=== PATIENT | male | born 1965 | race Caucasian/White ===

== ENCOUNTER 2019-10-07 13:14 | Emergency (ER) | payer OTHER ==
[~2019-10-07] VITALS: Ht 180.3 cm; Wt 74.2 kg
[~2019-10-07 13:14] MED LIST: AMLO5TAB10 PO; ATEN25TA42 PO; BENZ2AMP4 IJ; BUPR300T92 PO; DILT120C99 PO; OLAN5TAB9 PO; QUET150T2 PO; ROPI1TAB4 PO; TRAZ-125 PO
[2019-10-07 14:07] LABS: BASO # 0.1 x10^3/uL (0.0-0.2); BASO % 1 % (0-3); EOS # 0.1 x10^3/uL (0.0-0.7); EOS % 1 % (0-3); HEMATOCRIT 38.4 % (39.0-53.0); HEMOGLOBIN 13.1 g/dL (13.0-17.5); LYMPH # 0.7 x10^3/uL (1.0-4.8); LYMPH % 8 % (24-48); MEAN CORPUSCULAR HEMOGLOBIN 31 pg (25-35); MEAN CORPUSCULAR HGB CONC 34 g/dL (31-37); MEAN CORPUSCULAR VOLUME 92 fL (79-100); MONO # 0.5 x10^3/uL (0.0-1.1); MONO % 6 % (0-9); NEUT # 6.7 x10^3uL (1.8-7.7); NEUT % 84 % (31-73); PLATELET COUNT 223 x10^3/uL (140-400); RED BLOOD COUNT 4.19 x10^6/uL (4.30-5.70); RED CELL DISTRIBUTION WIDTH 12.7 % (11.5-14.5)
[2019-10-07 14:21] LABS: CALCIUM 8.6 mg/dL (8.5-10.1); CREATININE 1.6 mg/dL (0.7-1.3); GFR 44.9; POTASSIUM 3.5 mmol/L (3.5-5.1)
[2019-10-07 14:26] LABS: ETHANOL < 10 mg/dL (0-10); SALIC < 2.8 mg/dL (2.8-20.0)
[2019-10-07 14:27] LABS: ACETAMIN < 2.0 mcg/mL (10-30); ALBUMIN 3.4 g/dL (3.4-5.0); ALBUMIN/GLOBULIN RATIO 0.9 (1.0-1.7); MAGNESIUM 2.1 mg/dL (1.8-2.4); TOTAL BILIRUBIN 0.7 mg/dL (0.2-1.0)
--- NOTE | 2019-10-07 15:09 | PHYS DOC ---
Past History Past Medical History: Depression, Hypertension, Schizophrenia (AL AMARAL MD) Past Surgical History: No Surgical History (AL AMARAL MD) Alcohol Use: None (AL AMARAL MD) General Adult EDM: Chief Complaint: PSYCH EVALUATION HPI: HPI: Patient is a 54 yo m pw cc of hearing voices demetrio hearing voices. wants some help with this. They are telling him to go outside naked. He has similar presentation June 11 think admitted to [facility] at that time. Patient denies other complaints. He said he took 2 Seroquel to help but it has not helped yet (AL AMARAL MD) Review of Systems: Review of Systems: Constitutional: Denies fever or chills Eyes: Denies change in visual acuity Musculoskeletal: Denies back pain or joint pain Integument: Denies rash Neurologic: Denies headache, focal weakness or sensory changes Endocrine: Denies polyuria or polydipsia (AL AMARAL MD) Heart Score: Risk Factors: Risk Factors: DM, Current or recent (<one month) smoker, HTN, HLP, family history of CAD, obesity. Risk Scores: Score 0 - 3: 2.5% MACE over next 6 weeks - Discharge Home Score 4 - 6: 20.3% MACE over next 6 weeks - Admit for Clinical Observation Score 7 - 10: 72.7% MACE over next 6 weeks - Early Invasive Strategies (AL AMARAL MD) Current Medications: Current Meds: Current Medications Medications (Trade) Dose Ordered Sig/Ghazal Start Time Stop Time Status Last Admin Dose Admin Olanzapine (ZyPREXA ZYDIS) 10 mg STK-MED ONCE 10/07/19 13:37 10/07/19 13:37 DC (AL AMARAL MD) Allergies: Allergies: Allergies Coded Allergies Type Severity Reaction Last Updated Verified No Known Drug Allergies 10/07/19 No (AL AMARAL MD) Physical Exam: PE: Constitutional: Well developed disheveled appears older than stated age HENT: Normocephalic, atraumatic, bilateral external ears normal, oropharynx moist, no oral exudates, nose normal. [] Eyes: PERRLA, EOMI, conjunctiva normal, no discharge. [] Neck: Normal range of motion, no tenderness, supple, no stridor. [] Cardiovascular:Heart rate regular rhythm, no murmur [] Lungs & Thorax: Bilateral breath sounds clear to auscultation [] Abdomen: Bowel sounds normal, soft, no tenderness, no masses, no pulsatile masses. [] Skin: Warm, dry, no erythema, no rash. [] Back: No tenderness, no CVA tenderness. [] Extremities: No tenderness, no cyanosis, no clubbing, ROM intact, no edema. [] Neurologic: Alert and oriented X 3, normal motor function, normal sensory function, no focal deficits noted. [] Psychologic: Odd affect patient is voicing auditory hallucinations denies suicidal ideation denies homicidal ideation. Says he does not want to hurt anybody (AL AMARAL MD) PE: Constitutional: Well developed, well nourished HENT: Normocephalic, atraumatic Eyes: Conjunctiva normal, no discharge Neck: Normal range of motion, supple Lungs & Thorax: No respiratory distress, equal chest rise and fall Extremities: No tenderness, ROM intact, no edema Neurologic: Alert and oriented X 3, speech normal Psychologic: Affect flat, judgment abnormal (BRY MEI DO) Current Patient Data: Labs: Laboratory Tests Test 10/07/19 13:45 White Blood Count 8.0 x10^3/uL (4.0-11.0) Red Blood Count 4.19 x10^6/uL (4.30-5.70) L Hemoglobin 13.1 g/dL (13.0-17.5) Hematocrit 38.4 % (39.0-53.0) L Mean Corpuscular Volume 92 fL (79-100) Mean Corpuscular Hemoglobin 31 pg (25-35) Mean Corpuscular Hemoglobin Concent 34 g/dL (31-37) Red Cell Distribution Width 12.7 % (11.5-14.5) Platelet Count 223 x10^3/uL (140-400) Neutrophils (%) (Auto) 84 % (31-73) H Lymphocytes (%) (Auto) 8 % (24-48) L Monocytes (%) (Auto) 6 % (0-9) Eosinophils (%) (Auto) 1 % (0-3) Basophils (%) (Auto) 1 % (0-3) Neutrophils # (Auto) 6.7 x10^3uL (1.8-7.7) Lymphocytes # (Auto) 0.7 x10^3/uL (1.0-4.8) L Monocytes # (Auto) 0.5 x10^3/uL (0.0-1.1) Eosinophils # (Auto) 0.1 x10^3/uL (0.0-0.7) Basophils # (Auto) 0.1 x10^3/uL (0.0-0.2) Sodium Level 138 mmol/L (136-145) Potassium Level 3.5 mmol/L (3.5-5.1) Chloride Level 101 mmol/L (98-107) Carbon Dioxide Level 25 mmol/L (21-32) Anion Gap 12 (6-14) Blood Urea Nitrogen 30 mg/dL (8-26) H Creatinine 1.6 mg/dL (0.7-1.3) H Estimated GFR (Cockcroft-Gault) 44.9 BUN/Creatinine Ratio 19 (6-20) Glucose Level 136 mg/dL (70-99) H Calcium Level 8.6 mg/dL (8.5-10.1) Magnesium Level 2.1 mg/dL (1.8-2.4) Total Bilirubin 0.7 mg/dL (0.2-1.0) Aspartate Amino Transferase (AST) 15 U/L (15-37) Alanine Aminotransferase (ALT) 7 U/L (16-63) L Alkaline Phosphatase 82 U/L (46-116) Total Protein 7.0 g/dL (6.4-8.2) Albumin 3.4 g/dL (3.4-5.0) Albumin/Globulin Ratio 0.9 (1.0-1.7) L Salicylates Level < 2.8 mg/dL (2.8-20.0) L Salicylate Last Dose Date Unknown Salicylate Last Dose Time Unknown Acetaminophen Level < 2.0 mcg/mL (10-30) L Acetaminophen Last Dose Date Unknown Acetaminophen Last Dose Time Unknown Ethyl Alcohol Level < 10 mg/dL (0-10) Vital Signs: Vital Signs Date Time Temp Pulse Resp B/P (MAP) Pulse Ox O2 Delivery O2 Flow Rate FiO2 10/07/19 13:20 98.9 91 18 126/74 (91) 96 Room Air (AL AMARAL MD) EKG: EKG: [] QT interval is normal 441 sinus rhythm (AL AMARAL MD) Radiology/Procedures: Radiology/Procedures: Labs are s/f mild elev in creatinine, patient is taking good po in the Ed (AL AMARAL MD) Course & Med Decision Making: Course & Med Decision Making Pertinent Labs and Imaging studies reviewed. (See chart for details) [] This is a 54-year-old male who has a fairly fixed auditory hallucination about walking outside naked. Labs reviewed waiting on the urine otherwise clear at this time similar presentation last May she got admitted to [facility] at that time. COVID test was ordered. The auditory disturbance noted is basically chronic but a he has had this before and been admitted for it does appear to have pretty decompensated psychiatric illness. Currently on Seroquel Wellbutrin and trazodone patient was seen by mental health telehealth and they recommended inpatient psychiatry as well as vimpat and s eroquel. covid ordered. ativan and zydis given in er. With her nurse talk to 1 of the psychiatric facilities who recommended IV fluids and recheck creatinine. I ordered a liter of IV fluids and a recheck to be ordered. Care to be signed over to Dr. Mei (AL AMARAL MD) Course & Med Decision Making 1800- Sign out received from Dr. Amaral for psychiatric patient that has been screened by tele-psych and deemed to require inpatient psychiatric services. Creatinine elevated from baseline. IVF hydration given and repeat BMP pending. COVID swab also previously sent. Labs reviewed. Patient seen and evaluated by myself. Repeat Creatinine similar after IVF fluid hydration x 1 liter. Hypokalemia addressed. Additional 1 liter NS provided. Repeat BMP ordered at 0700. 0600- Patient had slept throughout the night with difficulty. Sign out given to Dr. Horta for further evaluation and potentially final disposition. Awaiting accepting psychiatric facility and physician. Discussed current findings and plan with patient, who acknowledges understanding and agreement. (BRY MEI DO) Course & Med Decision Making STILL AWAITING FOR COVID-19 TEST RESULT. Patient has been given geodon and ativan injection because he continued to hear voices telling him to strip down naked. Endorsed patient to Dr. Juve Lord at 1605. Awaiting for inpatient psychiatric placement. (PAO HORTA DO) Course & Med Decision Making Received care from Dr. Horta leading on COVID-19 results before behavioral health placement. Care will be signed over to Dr. Mei for placement (JUVE LORD MD) Dragon Disclaimer: Dragon Disclaimer: This electronic medical record was generated, in whole or in part, using a voice recognition dictation system. (AL AMARAL MD) Departure Departure: Impression: Primary Impression: Schizophrenia Qualified Codes: F20.9 - Schizophrenia, unspecified Disposition: 05 TRANSFER OTHER Condition: STABLE Referrals: ANNIE JURADO MD (PCP) Justification of Admission: Justification of Admission: Justification of Admission Dx: N/A (BRY MEI DO) AL AMARAL MD Oct 07, 2019 15:09 BRY MEI DO Oct 07, 2019 20:16 PAO HORTA DO Oct 08, 2019 16:07 JUVE LORD MD Oct 08, 2019 19:04
[2019-10-07] MEDS: LACOSAMIDE 50 MG TABLET PO SCH (16:51)
--- NOTE | 2019-10-07 17:14 | EKG ---
[address] [address] Test Date: 2019-10-07 Test Time: 13:56:52 Pat Name: AILYN ORTIZ Department: Room: Gender: M Practical Nurse: DANNA : 1965 Requested By: AL CABALLERO Order Number: [id number] Reading MD: Measurements Intervals [place] Rate: 86 P: 41 NH: 160 QRS: 19 QRSD: 82 T: 35 QT: 366 QTc: 441 Interpretive Statements SINUS RHYTHM NORMAL ECG RI6.02 No previous ECG available for comparison
[2019-10-07] MEDS ORDERED: IV NORMAL SALINE 1,000ML 1,000 ML IV ONE (17:45)
[2019-10-07 20:33] LABS: CALCIUM 8.2 mg/dL (8.5-10.1); CREATININE 1.6 mg/dL (0.7-1.3); GFR 44.9; POTASSIUM 3.3 mmol/L (3.5-5.1)
[2019-10-08] MEDS ORDERED: IV NORMAL SALINE 1,000ML 1,000 ML IV ONE (01:15)
[2019-10-08] MEDS ORDERED: POTASSIUM CHLORIDE 20 MEQ TABLET.ER. PO ONE ×2 (01:15→05:51)
[2019-10-08 06:59] LABS: BARBITURATES NEG (NEG); BENZODIAZEPINES NEG (NEG); CANNABINOIDS NEG (NEG); COCAINE NEG (NEG); METHADONE NEG (NEG); OPIATES NEG (NEG); PHENCYCLIDINE NEG (NEG)
[2019-10-08 07:00] LABS: AMPHETAMINE/METHAMPHETAMINE NEG (NEG)
[2019-10-08 07:03] LABS: BACTERIA,URINE FEW /HPF (0-FEW); BILIRUBIN,URINE NEG (NEG); CLARITY,URINE CLEAR; COLOR,URINE YELLOW; GLUCOSE,URINE NEG (NEG); NITRITE,URINE NEG (NEG); RBC,URINE OCC /HPF (0-2); SQUAMOUS EPITHELIAL CELL,UR OCC /LPF; UROBILINOGEN,URINE 0.2 mg/dL (0.2 mg/dL); WBC,URINE OCC /HPF (0-4)
[2019-10-08 07:44] LABS: CREATININE 1.2 mg/dL (0.7-1.3); GFR 62.6; POTASSIUM 3.6 mmol/L (3.5-5.1)
[2019-10-08] MEDS ORDERED: ZIPRASIDONE 20 MG CAPSULE. PO SCH (08:15)
[2019-10-08] MEDS: LACOSAMIDE 50 MG TABLET PO SCH ×2 (08:26→22:07)
[2019-10-08] MEDS ORDERED: LORazepam 1 MG TABLET PO ONE (19:45)
[2019-10-08] MEDS ORDERED: QUEtiapine 100 MG TABLET. PO SCH (21:00)
[2019-10-08 23:20] VITALS: BP 156/83
== END 2019-10-09 01:18 | disposition short-term general hospital (02) ==
LOC: ER 13:14
DX: F20.9 Schizophrenia, unspecified (principal); F32.9 Major depressive disorder, single episode, unspecified; I10 Essential (primary) hypertension
CPT/HCPCS: 36415; 80048; 80053; 80307; 80329; 81001; 83735; 85025; 93005; 96372; 99285; G0480; J2060; J7030; U0003

== ENCOUNTER 2020-01-09 17:59 | Emergency (ER) | payer OTHER ==
[~2020-01-09] VITALS: Ht 180.3 cm; Wt 74.2 kg
[~2020-01-09 17:59] MED LIST changes: +AMLO-186 PO; -AMLO5TAB10 PO
[2020-01-09] MEDS ORDERED: IV NORMAL SALINE 1,000ML 1,000 ML IV ONE (18:00)
[2020-01-09 18:01] VITALS: BP 162/114
--- NOTE | 2020-01-09 18:17 | EKG ---
[address] [address] Test Date: 2020-01-09 Test Time: 18:10:57 Pat Name: AILYN ORTIZ Department: Room: Gender: M Proof Coins Inspector: GABI : 1965 Requested By: CAROL CAPONE Order Number: [id number] Reading MD: Measurements Intervals [place] Rate: 81 P: 21 FL: 136 QRS: 17 QRSD: 80 T: 21 QT: 344 QTc: 400 Interpretive Statements SINUS RHYTHM NORMAL ECG RI6.02 No previous ECG available for comparison
[2020-01-09] MEDS ORDERED: QUEtiapine 100 MG TABLET. PO SCH (19:00)
[2020-01-09 19:24] LABS: CALCIUM 9.2 mg/dL (8.5-10.1); CREATININE 1.2 mg/dL (0.7-1.3); GFR 62.6; POTASSIUM 3.6 mmol/L (3.5-5.1)
[2020-01-09 19:30] LABS: ALBUMIN 4.2 g/dL (3.4-5.0); ALBUMIN/GLOBULIN RATIO 1.3 (1.0-1.7); TOTAL BILIRUBIN 0.5 mg/dL (0.2-1.0); TOTAL PROTEIN 7.5 g/dL (6.4-8.2)
[2020-01-09 19:50] LABS: BASO % 0 % (0-3); EOS # 0.1 x10^3/uL (0.0-0.7); EOS % 2 % (0-3); HEMATOCRIT 41.7 % (39.0-53.0); HEMOGLOBIN 13.9 g/dL (13.0-17.5); LYMPH # 1.2 x10^3/uL (1.0-4.8); LYMPH % 17 % (24-48); MEAN CORPUSCULAR HEMOGLOBIN 30 pg (25-35); MEAN CORPUSCULAR HGB CONC 33 g/dL (31-37); MEAN CORPUSCULAR VOLUME 91 fL (79-100); MONO # 0.6 x10^3/uL (0.0-1.1); MONO % 8 % (0-9); NEUT # 4.9 x10^3uL (1.8-7.7); NEUT % 72 % (31-73); PLATELET COUNT 188 x10^3/uL (140-400); RED BLOOD COUNT 4.59 x10^6/uL (4.30-5.70); RED CELL DISTRIBUTION WIDTH 13.2 % (11.5-14.5); WHITE BLOOD COUNT 6.8 x10^3/uL (4.0-11.0)
--- NOTE | 2020-01-09 20:34 | PHYS DOC ---
Past History Past Medical History: Depression, Hypertension, Schizophrenia Past Surgical History: No Surgical History Alcohol Use: None General Adult EDM: Chief Complaint: HALLUCINATIONS AUDIBLE/VISUAL HPI: HPI: 54-year-old male presents via EMS with audible hallucinations. Patient has a history of audible hallucinations. They always tell him to take his clothes off. Patient tells me he thinks that he missed his Seroquel dose today but is not completely sure. He states that he usually has worsening of his hallucinations when he misses his medication. He denies any other injuries, falls, or complaints at this time. Denies fever or chills at home. Review of Systems: Review of Systems: Constitutional: Denies fever or chills Eyes: Denies change in visual acuity HENT: Denies nasal congestion or sore throat Respiratory: Denies cough or shortness of breath Cardiovascular: Denies chest pain or edema GI: Denies abdominal pain, nausea, vomiting, bloody stools or diarrhea : Denies dysuria Musculoskeletal: Denies back pain or joint pain Integument: Denies rash Neurologic: Denies headache, focal weakness or sensory changes Endocrine: Denies polyuria or polydipsia Lymphatic: Denies swollen glands Psychiatric: Hallucinations Heart Score: Risk Factors: Risk Factors: DM, Current or recent (<one month) smoker, HTN, HLP, family history of CAD, obesity. Risk Scores: Score 0 - 3: 2.5% MACE over next 6 weeks - Discharge Home Score 4 - 6: 20.3% MACE over next 6 weeks - Admit for Clinical Observation Score 7 - 10: 72.7% MACE over next 6 weeks - Early Invasive Strategies Current Medications: Current Meds: Current Medications Medications (Trade) Dose Ordered Sig/Ghazal Start Time Stop Time Status Last Admin Dose Admin Quetiapine Fumarate (SEROquel) 150 mg DAILY 01/09/20 19:00 01/09/20 19:30 150 MG Sodium Chloride 1,000 ml @ 1,000 mls/hr 1X ONCE 01/09/20 18:00 01/09/20 18:59 DC Allergies: Allergies: Allergies Coded Allergies Type Severity Reaction Last Updated Verified No Known Drug Allergies 10/07/19 No Physical Exam: PE: Constitutional: Well developed, well nourished, no acute distress, non-toxic appearance. [] HENT: Normocephalic, atraumatic, bilateral external ears normal, oropharynx moist, no oral exudates, nose normal. [] Eyes: PERRLA, EOMI, conjunctiva normal, no discharge. [] Neck: Normal range of motion, no tenderness, supple, no stridor. [] Cardiovascular:Heart rate regular rhythm, no murmur [] Lungs & Thorax: Bilateral breath sounds clear to auscultation [] Abdomen: Bowel sounds normal, soft, no tenderness, no masses, no pulsatile masses. [] Skin: Warm, dry, no erythema, no rash. [] Back: No tenderness, no CVA tenderness. [] Extremities: No tenderness, no cyanosis, no clubbing, ROM intact, no edema. [] Neurologic: Alert and oriented X 3, normal motor function, normal sensory function, no focal deficits noted. [] Psychologic: Affect normal, audible hallucinations. [] Current Patient Data: Labs: Laboratory Tests Test 01/09/20 18:55 White Blood Count 6.8 x10^3/uL (4.0-11.0) Red Blood Count 4.59 x10^6/uL (4.30-5.70) Hemoglobin 13.9 g/dL (13.0-17.5) Hematocrit 41.7 % (39.0-53.0) Mean Corpuscular Volume 91 fL (79-100) Mean Corpuscular Hemoglobin 30 pg (25-35) Mean Corpuscular Hemoglobin Concent 33 g/dL (31-37) Red Cell Distribution Width 13.2 % (11.5-14.5) Platelet Count 188 x10^3/uL (140-400) Neutrophils (%) (Auto) 72 % (31-73) Lymphocytes (%) (Auto) 17 % (24-48) L Monocytes (%) (Auto) 8 % (0-9) Eosinophils (%) (Auto) 2 % (0-3) Basophils (%) (Auto) 0 % (0-3) Neutrophils # (Auto) 4.9 x10^3uL (1.8-7.7) Lymphocytes # (Auto) 1.2 x10^3/uL (1.0-4.8) Monocytes # (Auto) 0.6 x10^3/uL (0.0-1.1) Eosinophils # (Auto) 0.1 x10^3/uL (0.0-0.7) Basophils # (Auto) 0.0 x10^3/uL (0.0-0.2) Sodium Level 139 mmol/L (136-145) Potassium Level 3.6 mmol/L (3.5-5.1) Chloride Level 103 mmol/L (98-107) Carbon Dioxide Level 25 mmol/L (21-32) Anion Gap 11 (6-14) Blood Urea Nitrogen 27 mg/dL (8-26) H Creatinine 1.2 mg/dL (0.7-1.3) Estimated GFR (Cockcroft-Gault) 62.6 BUN/Creatinine Ratio 23 (6-20) H Glucose Level 97 mg/dL (70-99) Calcium Level 9.2 mg/dL (8.5-10.1) Total Bilirubin 0.5 mg/dL (0.2-1.0) Aspartate Amino Transferase (AST) 11 U/L (15-37) L Alanine Aminotransferase (ALT) 14 U/L (16-63) L Alkaline Phosphatase 81 U/L (46-116) Troponin I Quantitative < 0.017 ng/mL (0-0.055) Total Protein 7.5 g/dL (6.4-8.2) Albumin 4.2 g/dL (3.4-5.0) Albumin/Globulin Ratio 1.3 (1.0-1.7) Vital Signs: Vital Signs Date Time Temp Pulse Resp B/P (MAP) Pulse Ox O2 Delivery O2 Flow Rate FiO2 01/09/20 18:01 98.5 91 16 162/114 (130) 98 Room Air EKG: EKG: [] Radiology/Procedures: Radiology/Procedures: [] Course & Med Decision Making: Course & Med Decision Making Pertinent Labs and Imaging studies reviewed. (See chart for details) The patient's labs are unremarkable. We gave him his Seroquel dose and he is feeling much better. He is stable for discharge at this time. [] Dragon Disclaimer: Dragon Disclaimer: This electronic medical record was generated, in whole or in part, using a voice recognition dictation system. Departure Departure: Impression: Primary Impression: Auditory hallucinations Disposition: 01 DC HOME SELF CARE/HOMELESS Condition: STABLE Referrals: ANNIE JURADO MD (PCP) Patient Instructions: Hallucinations and Delusions CAROL CAPONE DO Jan 09, 2020 20:34
== END 2020-01-09 23:30 | disposition home or self-care (01) ==
LOC: ER 17:59
DX: R44.0 Auditory hallucinations (principal); F32.9 Major depressive disorder, single episode, unspecified; I10 Essential (primary) hypertension; F20.9 Schizophrenia, unspecified
CPT/HCPCS: 36415; 80053; 84484; 85025; 93005; 99284

== ENCOUNTER 2020-07-20 07:31 | Emergency (ER) | payer OTHER ==
[~2020-07-20] VITALS: Ht 180.3 cm; Wt 74.2 kg
[2020-07-20 07:33] VITALS: BP 180/96
--- NOTE | 2020-07-20 07:45 | PHYS DOC ---
Past History Past Medical History: Depression, Diabetes, Hypertension, Schizophrenia Past Surgical History: No Surgical History Alcohol Use: None Adult General Chief Complaint Chief Complaint: Insomnia HPI HPI Patient is a 54-year-old male presenting via EMS for insomnia. Patient has past medical history significant for diabetes and hypertension but does not take any medications. He has local primary care physician and was seen 2 months ago, denies any upcoming appointments with him. Reports he is homeless, has had trouble sleeping and past 72 hours. Presents to our facility with no complaints, states he is hungry. Denies any fever, recent sick contacts, chest pain, shortness of breath, abdominal pain, UTI-like symptoms, changes in motor or sensory function, no neurologic deficits. Denies HI and/or SI Review of Systems Review of Systems Fourteen body systems of review of systems have been reviewed. See HPI for pertinent positives and negative responses, other taylor all other systems are negative, non-pertinent or non-contributory Allergies Allergies Allergies Coded Allergies Type Severity Reaction Last Updated Verified No Known Drug Allergies 10/07/19 No Physical Exam Physical Exam Constitutional: Well developed, well nourished, no acute distress, non-toxic appearance. HENT: Normocephalic, atraumatic, bilateral external ears normal, oropharynx tom st, no oral exudates, nose normal. Eyes: PERRLA, EOMI, conjunctiva normal, no discharge. Neck: Normal range of motion, no tenderness, supple, no stridor. Cardiovascular: Heart rate regular, sinus rhythm, no murmurs rubs or gallops Lungs & Thorax: Bilateral breath sounds clear to auscultation Abdomen: Bowel sounds normal, soft, no tenderness, no masses, no pulsatile masses. Nonsurgical abdomen, no peritoneal signs Skin: Warm, dry, no erythema, no rash. Back: No tenderness, no CVA tenderness. Extremities: No tenderness, no cyanosis, no clubbing, ROM intact, no edema. Neurologic: Alert and oriented X 3, grossly normal motor & sensory function, no focal deficits noted. Psychologic: Flat affect, depressed mood Current Patient Data Vital Signs Vital Signs Date Time Temp Pulse Resp B/P (MAP) Pulse Ox O2 Delivery O2 Flow Rate FiO2 07/20/20 07:33 98.6 87 16 180/96 (124) 96 Room Air Lab Results Laboratory Tests Test 07/20/20 07:36 Glucose (Fingerstick) 111 mg/dL (70-99) H EKG EKG [] Radiology/Procedures Radiology/Procedures [] Heart Score C/O Chest Pain: No HEART Score for Chest Pain: HEART Score for Chest Pain Response (Comments) Value History Slighlty/Non-Suspicious 0 Age >45 - < 65 1 Risk Factors 1 or 2 Risk Factors 1 Total 2 Risk Factors: Risk Factors: DM, Current or recent (<one month) smoker, HTN, HLP, family history of CAD, obesity. Risk Scores: Risk Factors: DM, Current or recent (<one month) smoker, HTN, HLP, family history of CAD, obesity. Course & Med Decision Making Course & Med Decision Making Hemodynamically stable patient with no significant complaints on HPI, physical exam nonconcerning. [id number] glucose unremarkable Discussed little utility for further diagnostic work-up in an otherwise asymptomatic patient. He has good access to primary care provider and can be seen in outpatient setting if needed. States he is hungry on arrival. He is interested in receiving resources for local area Patient fed meal. Continued to be asymptomatic, ambulatory, well-appearing and nontoxic. He is requesting departure, I feel this is acceptable. Advised patient to contact PCP for follow-up, advised him to utilize discharge instructions and resources provided Strict return precautions discussed with good understanding, all questions and concerns addressed prior to departure Sriram Disclaimer Sriram Disclaimer This electronic medical record was generated, in whole or in part, using a voice recognition dictation system. Departure Departure: Impression: Primary Impression: Homeless Additional Impression: Schizophrenia Disposition: HOME / SELF CARE / HOMELESS Condition: GOOD Referrals: ANNIE JURADO MD (PCP) Problem Qualifiers NELLY TORRES DO Jul 20, 2020 07:45
== END 2020-07-20 08:50 | disposition home or self-care (01) ==
LOC: ER 07:31
DX: F20.9 Schizophrenia, unspecified (principal); F32.9 Major depressive disorder, single episode, unspecified; E11.9 Type 2 diabetes mellitus without complications; I10 Essential (primary) hypertension; Z59.0 Homelessness
CPT/HCPCS: 82947; 99283

== ENCOUNTER 2020-07-22 13:58 | Emergency (ER) | payer OTHER ==
[~2020-07-22] VITALS: Ht 180.3 cm; Wt 74.2 kg
[2020-07-22 15:07] LABS: BASO % 1 % (0-3); EOS # 0.2 x10^3/uL (0.0-0.7); EOS % 3 % (0-3); HEMATOCRIT 38.9 % (39.0-53.0); HEMOGLOBIN 13.1 g/dL (13.0-17.5); LYMPH % 21 % (24-48); MEAN CORPUSCULAR HEMOGLOBIN 30 pg (25-35); MEAN CORPUSCULAR HGB CONC 34 g/dL (31-37); MEAN CORPUSCULAR VOLUME 91 fL (79-100); MONO # 0.6 x10^3/uL (0.0-1.1); MONO % 11 % (0-9); NEUT # 3.2 x10^3uL (1.8-7.7); NEUT % 64 % (31-73); PLATELET COUNT 219 x10^3/uL (140-400); RED CELL DISTRIBUTION WIDTH 13.6 % (11.5-14.5)
[2020-07-22 15:11] LABS: CALCIUM 8.2 mg/dL (8.5-10.1); CREATININE 1.1 mg/dL (0.7-1.3); GFR 69.2
[2020-07-22 15:17] LABS: ALBUMIN 3.5 g/dL (3.4-5.0); TOTAL BILIRUBIN 0.5 mg/dL (0.2-1.0); TOTAL PROTEIN 7.1 g/dL (6.4-8.2)
[2020-07-22 15:18] LABS: ACETAMIN < 2 mcg/mL (10-30); ETHANOL < 10 mg/dL (0-10); SALIC < 2.8 mg/dL (2.8-20.0)
--- NOTE | 2020-07-22 16:59 | PHYS DOC ---
Past History Past Medical History: Depression, Diabetes, Hypertension, Schizophrenia (BRY NELSON APRN) Past Medical History: Depression, Schizophrenia (OTILIA SAMANIEGO MD) Past Surgical History: No Surgical History (BRY NELSON APRN) Alcohol Use: None (BRY NELSON APRN) Adult General Chief Complaint Chief Complaint: ALTERED MENTAL STATUS HPI HPI Patient is a 54-year-old male presents emergency department via EMS. 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 PD was called, patient was given the ultimatum to either come to the emergency department and have a mental health evaluation or go to [facility]. Patient decided to come for a mental health evaluation. Patient states he is suicidal, homicidal, having auditory visual hallucinations however has no plan, cannot determine what he is hearing, cannot describe what visual hallucinations he is seen. Patient denies headaches, recent fever chills, chest pain, shortness of breath, rash to his skin, increased thirst or increased urination, patient denies any other physical complaints or physical concerns. Patient states his main concern is obtaining an ambulance ride to his home back in [facility]. (BRY NELSON APRN) Review of Systems Review of Systems 14 body systems of review of systems have been reviewed. See HPI for pertinent positives and negative responses, otherwise all other systems are negative, nonpertinent or noncontributory. (BRY NELSON APRN) Allergies Allergies Allergies Coded Allergies Type Severity Reaction Last Updated Verified cocaine Allergy Unknown 07/22/20 Yes (BRY NELSON APRN) Physical Exam Physical Exam Constitutional: Well developed, well nourished, no acute distress, non-toxic appearance. 54-year-old male no apparent distress. Patient homeless, disheveled appearance. HENT: Normocephalic, atraumatic, bilateral external ears normal, oropharynx mo ist, no oral exudates, nose normal. Eyes: PERRLA, EOMI, conjunctiva normal, no discharge. Neck: Normal range of motion, no tenderness, supple, no stridor. Cardiovascular:Heart rate regular rhythm, no murmur Lungs & Thorax: Bilateral breath sounds clear to auscultation Abdomen: Bowel sounds normal, soft, no tenderness, no masses, no pulsatile masses. Skin: Warm, dry, no erythema, no rash. Back: No tenderness, no CVA tenderness. Extremities: No tenderness, no cyanosis, no clubbing, ROM intact, no edema. Patient has erythematous swelling of his right lower extremity, patient states it has been this way for the past 15 years and reports it is looking better than usual. Distal cap refill less than 2 seconds, +2 dorsalis pedis/posterior tibial pulses. Neurologic: Alert and oriented X 3, normal motor function, normal sensory function, no focal deficits noted. Psychologic: Affect normal, judgement abnormal, mood normal. Reports homicidal, suicidal ideations, reports auditory and visual hallucinations. (BRY NELSON APRN) Current Patient Data Vital Signs Vital Signs Date Time Temp Pulse Resp B/P (MAP) Pulse Ox O2 Delivery O2 Flow Rate FiO2 07/22/20 14:59 81 20 181/145 (157) 98 07/22/20 14:02 98.2 Room Air Lab Results Laboratory Tests Test 07/22/20 14:34 White Blood Count 5.0 x10^3/uL (4.0-11.0) Red Blood Count 4.30 x10^6/uL (4.30-5.70) Hemoglobin 13.1 g/dL (13.0-17.5) Hematocrit 38.9 % (39.0-53.0) L Mean Corpuscular Volume 91 fL (79-100) Mean Corpuscular Hemoglobin 30 pg (25-35) Mean Corpuscular Hemoglobin Concent 34 g/dL (31-37) Red Cell Distribution Width 13.6 % (11.5-14.5) Platelet Count 219 x10^3/uL (140-400) Neutrophils (%) (Auto) 64 % (31-73) Lymphocytes (%) (Auto) 21 % (24-48) L Monocytes (%) (Auto) 11 % (0-9) H Eosinophils (%) (Auto) 3 % (0-3) Basophils (%) (Auto) 1 % (0-3) Neutrophils # (Auto) 3.2 x10^3uL (1.8-7.7) Lymphocytes # (Auto) 1.0 x10^3/uL (1.0-4.8) Monocytes # (Auto) 0.6 x10^3/uL (0.0-1.1) Eosinophils # (Auto) 0.2 x10^3/uL (0.0-0.7) Basophils # (Auto) 0.0 x10^3/uL (0.0-0.2) Sodium Level 140 mmol/L (136-145) Potassium Level 4.0 mmol/L (3.5-5.1) Chloride Level 105 mmol/L (98-107) Carbon Dioxide Level 25 mmol/L (21-32) Anion Gap 10 (6-14) Blood Urea Nitrogen 24 mg/dL (8-26) Creatinine 1.1 mg/dL (0.7-1.3) Estimated GFR (Cockcroft-Gault) 69.2 BUN/Creatinine Ratio 22 (6-20) H Glucose Level 115 mg/dL (70-99) H Calcium Level 8.2 mg/dL (8.5-10.1) L Total Bilirubin 0.5 mg/dL (0.2-1.0) Aspartate Amino Transferase (AST) 23 U/L (15-37) Alanine Aminotransferase (ALT) 26 U/L (16-63) Alkaline Phosphatase 88 U/L (46-116) Total Protein 7.1 g/dL (6.4-8.2) Albumin 3.5 g/dL (3.4-5.0) Albumin/Globulin Ratio 1.0 (1.0-1.7) Salicylates Level < 2.8 mg/dL (2.8-20.0) L Salicylate Last Dose Date Unknown Salicylate Last Dose Time Unknown Acetaminophen Level < 2 mcg/mL (10-30) L Acetaminophen Last Dose Date Unknown Acetaminophen Last Dose Time Unknown Ethyl Alcohol Level < 10 mg/dL (0-10) (BRY NELSON APRN) EKG EKG [] (BRY NELSON APRN) Radiology/Procedures Radiology/Procedures [] (BRY NELSON APRN) Radiology/Procedures EXAM: Right lower extremity venous Doppler. HISTORY: Right lower extremity pain, redness and swelling. COMPARISON: None. FINDINGS: Grayscale and Doppler analysis of the right lower extremity deep venous system was performed with graded compression and augmentation. The common femoral, greater saphenous, superficial femoral, popliteal and calf veins were assessed. There is no evidence of deep venous thrombosis. Right inguinal lymph nodes measure up to 2.3 x 1.3 cm. Extensive subcutaneous edema is noted along the right lower leg. IMPRESSION: 1. No evidence of deep venous thrombosis. 2. Prominent right inguinal lymph node. Correlate for right lower extremity in flammation. Electronically signed by: Cristina Meadows MD (07/22/2020 11:13 PM) [facility] (NELLY TORRES DO) Radiology/Procedures IMAGING REPORT Signed PATIENT: AILYN ORTIZ ACCOUNT: [id number] : 1965 LOCATION: ER AGE: 54 SEX: M EXAM STATUS: REG ER ORD. PHYSICIAN: YONI RODAS DO REASON: lung cancer? PROCEDURE: CHEST PA & LATERAL XR CHEST 2V Technique: PA and lateral views of the chest were obtained. Clinical History: Reason: lung cancer? / Spl. Instructions: / History: Comparison: None. Findings: The heart and pulmonary vasculature appear within normal limits. There is vague patchy reticular opacities in the lungs. The pleural margins are clear. Impression: Mild interstitial infiltrates could be atypical pneumonia. Electronically signed by: Charlene Segal III, MD (07/23/2020 10:44 AM) [facility] [place] DICTATED AND SIGNED BY: CHARLENE SEGAL III, MD DATE: 07/23/20 1044 CC: ANNIE JURADO MD; YONI RODAS DO ~MTH0 0 (YONI RODAS DO) Radiology/Procedures [address] [address] (OTILIA SAMANIEGO MD) Heart Score C/O Chest Pain: No Risk Factors: Risk Factors: DM, Current or recent (<one month) smoker, HTN, HLP, family history of CAD, obesity. Risk Scores: Risk Factors: DM, Current or recent (<one month) smoker, HTN, HLP, family history of CAD, obesity. (BRY NELSON APRN) Course & Med Decision Making Course & Med Decision Making Pertinent Labs and Imaging studies reviewed. (See chart for details) 54-year-old male presents emergency department via EMS with chief complaint of given the choice of going to [facility] or having a mental health evaluation, patient chose mental health evaluation. Physical examination showed signs of venous insufficiency of the right lower extremity, no sign of acute infectious process or cellulitis appreciated. Patient did complaint of homicidal, suicidal id eations, visual and auditory hallucinations. Patient states he is doing this so that he can obtain a ride back to [facility] where his home is. Patient was at [facility] and was escorted off the property by local PD. Will perform mental health evaluation via PAT [employer] team member consult, CBC, BMP, urinalysis assay, urine drug screen, salicylate level, acetaminophen level, EtOH level. Will obtain Covid19 virus testing for placement into psychiatric facility if recommended by PAT [employer] team member. [employer] team member Liz at bedside to interview patient. [employer] team member Liz recommended patient be admitted inpatient against his will as he is unable to make his own medical decisions. Patient is amenable to this plan. [employer] team member Liz in process of inpatient admission for patient. Patient still awaiting inpatient placement, patient calm in room watching TV. End of shift report given to ED attending physician Dr. Torres who has assumed patient care at this time. (BRY NELSON APRN) Course & Med Decision Making I assumed care of patient overnight on 07/22/2020-07/23/2020. Patient remains involuntary status for acute psychosis pending inpatient psychiatric acceptance and transfer No acute issues. Patient seen and evaluated by myself, noted to have enlarged, erythematous and tender right lower extremity versus contralateral lower extremity. Reports hitting leg approximately 4 days ago and has posterior calf pain Ultrasound ordered, this was ultimately negative for acute thrombus. No medication required for pain. No other medications required throughout entirety of shift At this time, my shift is ended. Comprehensive signout given to oncoming physician. Please defer to further documentation regarding care of patient while in ER (NELLY TORRES DO) Course & Med Decision Making I received signout from Dr. Torres at shift change. Patient is pending placement for involuntary psych. Patient with no acute complaints. Chest x-ray with aty pical presentation, Covid test negative. Patient with right lower extremity swelling, PAD/PVD, hemosiderin deposition w/ no increased warmth. No DVT on ultrasound. Patient is medically cleared and stable transfer for inpatient psych. Patient is awaiting placement (likely to [facility]). Due to shift change patient was signed out to oncoming physician Dr. Samaniego. I received signout from Dr. Samaniego. Patient required sedation during his shift. No acute events during my shift. Patient symptoms absolutely hospital stable at time of transfer. (YONI RODAS DO) Course & Med Decision Making See above H and P for details prior shift change on 07/23/20 1800 hrs. See PAT evaluation. 2330 hrs - 07/23/2020- Pt. becoming very agitated and restless. Hallucinating. Yelling out. Pacing. Patient given Ativan 2, Haldol 10, Benadryl 50 for sedation. 0600 Pt. sleeping rest of night after above meds. Still awaiting placement at [facility]. PAT team to call on placement today again. Pt. here since 07/22. Pt. endorsed to Dr. Rodas at shift change. Impression; 1. Psychosis 2. Hx. of Bipolar 3. Hx. of Schizophrenia 4. Hx. of Alcohol Abuse 5. Hx. of Suicidal and homicidal ideation (OTILIA SAMANIEGO MD) Dragon Disclaimer Dragon Disclaimer This electronic medical record was generated, in whole or in part, using a voice recognition dictation system. (BRY NELSON APRN) Departure Departure: Impression: Primary Impression: Acute psychosis Additional Impressions: Schizophrenia Swelling of right lower extremity Disposition: 02 SHORT TERM HOSPITAL (accepted to [facility], Dr. Rodriguez) Condition: STABLE Referrals: ANNIE JURADO MD (PCP) Problem Qualifiers BRY NELSON APRN Jul 22, 2020 16:59 NELLY TORRES DO July 23, 2020 00:27 YONI RODAS DO July 23, 2020 17:51 OTILIA SAMANIEGO MD July 23, 2020 23:34
--- NOTE | 2020-07-22 23:15 | RAD ---
EXAM: Right lower extremity venous Doppler. HISTORY: Right lower extremity pain, redness and swelling. COMPARISON: None. FINDINGS: Grayscale and Doppler analysis of the right lower extremity deep venous system was performe d with graded compression and augmentation. The common femoral, greater saphenous, superficial femora l, popliteal and calf veins were assessed. There is no evidence of deep venous thrombosis. Right inguinal lymph nodes measure up to 2.3 x 1.3 cm . Extensive subcutaneous edema is noted along the right lower leg. IMPRESSION: 1. No evidence of deep venous thrombosis. 2. Prominent right inguinal lymph node. Correlate for right lower extremity inflammation. Electronically signed by: Cristina Meadows MD (07/22/2020 11:13 PM) [facility]
[2020-07-22 23:30] LABS: BACTERIA,URINE FEW /HPF (0-FEW); BILIRUBIN,URINE NEG (NEG); CLARITY,URINE CLEAR; COLOR,URINE YELLOW; GLUCOSE,URINE NEG (NEG); NITRITE,URINE NEG (NEG); UROBILINOGEN,URINE 0.2 mg/dL (0.2 mg/dL); WBC,URINE 0 /HPF (0-4)
[2020-07-22 23:31] LABS: SQUAMOUS EPITHELIAL CELL,UR OCC /LPF
[2020-07-22 23:33] LABS: BARBITURATES NEG (NEG); BENZODIAZEPINES NEG (NEG); CANNABINOIDS NEG (NEG); COCAINE NEG (NEG); METHADONE NEG (NEG); OPIATES NEG (NEG); PHENCYCLIDINE NEG (NEG)
[2020-07-22 23:39] LABS: AMPHETAMINE/METHAMPHETAMINE NEG (NEG)
--- NOTE | 2020-07-23 10:46 | RAD ---
XR CHEST 2V Technique: PA and lateral views of the chest were obtained. Clinical History: Reason: lung cancer? / Spl. Instructions: / History: Comparison: None. Findings: The heart and pulmonary vasculature appear within normal limits. There is vague patchy reticular opa cities in the lungs. The pleural margins are clear. Impression: Mild interstitial infiltrates could be atypical pneumonia. Electronically signed by: Sanchez Ortiz III, MD (07/23/2020 10:44 AM) [facility]
[2020-07-23] MEDS ORDERED: HALOPERIDOL 5 MG TABLET ONE (23:23)
[2020-07-23] MEDS ORDERED: HALOPERIDOL 1 MG TABLET PO ONE (23:30)
[2020-07-23] MEDS ORDERED: LORazepam 1 MG TABLET PO ONE (23:30)
[2020-07-23] MEDS ORDERED: diphenhydrAMINE HCL 25 MG CAPSULE PO ONE (23:30)
[2020-07-24] MEDS ORDERED: AZITHROMYCIN 250 MG TABLET. PO ONE (04:00)
[2020-07-24 09:15] VITALS: BP 148/88
[2020-07-24] MEDS ORDERED: AZITHROMYCIN 250 MG TABLET. ONE (10:19)
== END 2020-07-24 11:10 ==
LOC: ER 13:58
DX: F29 Unspecified psychosis not due to a substance or known physiological condition (principal); F20.9 Schizophrenia, unspecified; R22.41 Localized swelling, mass and lump, right lower limb; F31.9 Bipolar disorder, unspecified; F10.10 Alcohol abuse, uncomplicated; E11.9 Type 2 diabetes mellitus without complications; I10 Essential (primary) hypertension; Z20.822 Contact with and (suspected) exposure to COVID-19; Z88.5 Allergy status to narcotic agent; Y90.0 Blood alcohol level of less than 20 mg/100 ml
CPT/HCPCS: 36415; 80053; 80307; 80329; 81001; 85025; 87426; 93971; 96372; 99285; G0480; J2060; U0003